=== PATIENT | female | born 2005 | race Caucasian/White ===

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

== ENCOUNTER 2023-01-07 07:27 | Outpatient (RCR) | payer BC, MEDICAID, SELFPAY | END 2023-01-29 23:59 | disposition home or self-care (01) | LOC: SPT 07:27 | PROVIDERS: PCP Nurse Practitioner Family; Visit Provider Nurse Practitioner Family | DX: M25.561 Pain in right knee (principal) | CPT/HCPCS: 97110; 97161 ==

== ENCOUNTER 2023-01-30 06:00 | Outpatient (RCR) | payer BC, MEDICAID, SELFPAY | END 2023-02-02 23:59 | disposition home or self-care (01) | LOC: SPT 06:00 | PROVIDERS: PCP Nurse Practitioner Family; Visit Provider Nurse Practitioner Family | DX: M25.561 Pain in right knee (principal) | CPT/HCPCS: 97110 ==

== ENCOUNTER 2023-02-21 06:16 | Emergency (ER) | payer OTHER, BC, MEDICAID, SELFPAY ==
[2023-02-21 06:26] VITALS: BP 137/80; PULSE 93; RESP 20; TEMP 36.7; O2SAT 94
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
[2023-02-21] MEDS: iohexol 350 mg/mL 500 mL Btl (per mL) IV (07:26)
[2023-02-21 07:27] VITALS: BP 146/78; PULSE 80; RESP 18; O2SAT 99
[2023-02-21 07:31] VITALS: BP 137/80; PULSE 93; RESP 18; O2SAT 100
== END 2023-02-21 08:24 | disposition home or self-care (01) ==
PROVIDERS: Emergency Provider Emergency Medicine; PCP Nurse Practitioner Family
DX: Z04.1 Encounter for examination and observation following transport accident (principal); V89.2XXA Person injured in unspecified motor-vehicle accident, traffic, initial encounter
CPT/HCPCS: 70450; 71260; 72125; 74177; 99285; Q9967

== ENCOUNTER → 2023-04-29 10:06 | Outpatient (BNVA) | payer BC, MEDICAID, SELFPAY | PROVIDERS: PCP Nurse Practitioner Family; Referring Provider Nurse Practitioner Family; Visit Provider Nurse Practitioner | DX: S83.206A Unspecified tear of unspecified meniscus, current injury, right knee, initial encounter; M23.51 Chronic instability of knee, right knee; X58.XXXA Exposure to other specified factors, initial encounter | CPT/HCPCS: 73560; 73565 ==

== ENCOUNTER 2023-06-08 07:49 | Outpatient (CLI) | payer BC, MEDICAID, SELFPAY ==
--- NOTE | 2023-06-08 08:00 | MR_ITS ---
WS: [id number] MRI RIGHT KNEE NONCONTRAST TECHNIQUE: Axial PD, coronal PD fat sat, coronal PD, sagittal PD, and sagittal PD fat-sat images obta ined. CLINICAL INFORMATION: acute worsening of right knee pain COMPARISON: None. FINDINGS: Distal quadriceps and patella tendons are intact. Normal ACL and PCL. Complex bucket-handle type tear involving the posterior horn medial meniscus extending to the meniscal root. Associated blunting of the anterior horn. Small meniscal fragment extends along the intercondylar notch. Normal lateral meniscus. Normal patella within the trochlear groove. No subluxation or dislocation. N o significant chondromalacia patella. Normal patella bone marrow signal. Medial and lateral patellar retinaculum appear intact. Normal popliteal fossa. Small amount of fluid deep to the lateral collateral ligament which appears i ntact. Popliteus appears intact. Normal biceps femoris. Normal medial collateral ligament. Normal pop liteal fossa. IMPRESSION: 1. Normal ACL and PCL. 2. Complex bucket-handle type tear involving the posterior horn medial meniscus extending to the men iscal root. 3. Associated blunting of the anterior horn. Small fragment extends along the intercondylar notch. 4. Small amount of fluid and edema along the lateral collateral ligament consistent with grade 1 inj ury. LCL appears intact. 5. Normal patella within the trochlear groove. No evidence of subluxation or dislocation. Normal pat ellar retinaculum. 6. Normal medial collateral ligament. Outbridge grading: grade I: focal areas of hyperintensity with normal contour
== END 2023-06-08 07:50 | disposition home or self-care (01) ==
LOC: RAD 07:49
PROVIDERS: PCP Nurse Practitioner Family; Visit Provider Nurse Practitioner
DX: S83.211A Bucket-handle tear of medial meniscus, current injury, right knee, initial encounter (principal); T84.022A Instability of internal right knee prosthesis, initial encounter; X58.XXXA Exposure to other specified factors, initial encounter
CPT/HCPCS: 73721

== ENCOUNTER 2023-09-23 05:49 | Day surgery (SDC) | payer BC, MEDICAID, SELFPAY ==
[2023-09-23] VITALS (11 sets, daily range): BP systolic 95–137; BP diastolic 41–87; PULSE 70–93; RESP 10–20; TEMP 36.4–36.9; O2SAT 97–100
[2023-09-23] MEDS: sodium chloride 0.9% 1,000 ML 30 ML IV (06:14)
[2023-09-23] MEDS: acetaminophen 1,000 MG/100 ML PIGGYBACK 400 MG IV (06:16)
[2023-09-23] MEDS: ketorolac 30 mg/mL INJ IVP (06:17)
[2023-09-23] MEDS: scopolamine 1.5 Patch 1 PATCH TRANSDERMA (06:17)
[2023-09-23 06:30] LABS: OR HCG Qualitative Urine Negative (Negative)
--- NOTE | 2023-09-23 06:42 | ANES.PREANE2 ---
Pre-Anesthetic Assessment Height/Weight: Height 1.75 m Weight 66.678 kg Temp Pulse Resp BP Pulse Ox O2 Del Method 97.9 F 86 16 123/65 100 Room Air 09/23/23 06:06 09/23/23 06:06 09/23/23 06:06 09/23/23 06:06 09/23/23 06:06 09/23/23 06:06 Operation Date: 09/23/23 07:00 Proposed Procedures p Knee Arthroscopy - RIGHT Knee Diagnostic And Surgical Arthroscopy with Medial Meniscal Repair versus Partial Medial Meniscectomy(Right) - Andres Baker DO Familial anesthetic complications: None Was Beta Gaurang taken within 24 hours: N/A Was Clonidine taken within 24 hours: N/A Last intake: Intake Last Liquid Date 09/22/23 Last Liquid Time 22:00 Last Solid Date 09/22/23 Last Solid Time 22:00 Social Tobacco (vapes) and No alcohol Exam alert, oriented x 3, clear to auscultation bilaterally and regular rate & rhythm Airway Mallampati: Class II Dentition: full Anesthetic Plan ASA status: 1 Anesthesia: General Risk of > 500 ml blood loss (7ml/kg in children): No Medications/Allergies Home Medications Medication Instructions Recorded Confirmed Last Taken Type amitriptyline 25 mg tablet 20 mg PO DAILY 09/22/23 09/23/23 09/22/23 History Allergies Allergy/AdvReac Type Severity Reaction Status Date / Time cantaloupe Allergy ALGY-Anaphy Verified 08/18/23 07:52 laxis Current Medications Generic Name Dose Route Start Last Admin Trade Name Freq PRN Reason Stop Dose Admin Sodium Chloride 1,000 mls @ 30 mls/hr 09/23/23 06:00 09/23/23 06:14 Sodium Chloride 0.9% IV 09/24/23 05:59 30 mls/hr .Q24H AIDA Administration PFSH Anesthesia Medical History Recurrent instability of right knee joint Positive Vic test of right knee No pertinent past medical history Social History Alcohol intake: never Data Anesthesia Cardiac Studies: No Data to Display
[2023-09-23] MEDS: ceFAZolin 2,000 MG in sodium chloride 0.9% (plus) 50 ML 100 MG IV (06:56)
--- NOTE | 2023-09-23 07:00 | P.HP_ITS ---
Same Day Surgery H&P Indication for Procedure/HPI DATE OF PROCEDURE: September 23, 2023 CHIEF COMPLAINT/INDICATIONFOR SURGICAL PROCEDURE: Right knee medial meniscus tear PREOP DIAGNOSIS: Right knee medial meniscus tear PLANNED PROCEDURE: Operation Date: 09/23/23 07:00 Proposed Procedures p Knee Arthroscopy - RIGHT Knee Diagnostic And Surgical Arthroscopy with Medial Meniscal Repair versus Partial Medial Meniscectomy(Right) - Andres Baker DO Medications/Allergies* Home Medications Medication Instructions Recorded Confirmed Type amitriptyline 25 mg tablet 20 mg PO DAILY 09/22/23 09/23/23 History Allergies/Adverse Reactions Allergy/AdvReac Type Severity Reaction Status Date / Time cantaloupe Allergy ALGY-Anaphy Verified 08/18/23 07:52 laxis Current Medications: Generic Name Dose Route Start Last Admin Trade Name Freq PRN Reason Stop Dose Admin Sodium Chloride 1,000 mls @ 30 mls/hr 09/23/23 06:00 09/23/23 06:14 Sodium Chloride 0.9% IV 09/24/23 05:59 30 mls/hr .Q24H AIDA Administration Pertinent History/Comorbid Conditions* Medical History (Updated 08/31/23 @ 07:14 by Andres Baker DO) Recurrent instability of right knee joint Positive Vic test of right knee No pertinent past medical history Social History Alcohol intake: never Pertinent Exam Findings alert, oriented x 3, operative site marked and procedure specific exam findings Please refer to detailed orthopedic examination on 08/17/2023: Listed below RIGHT LOWER EXTREMITY: Yes knee joint Right knee: Yes inspection (No skin breakdown or bruising. Mild swelling noted anteriorly), Yes palpation (Pain to anterior knee, medial joint line and posteromedial knee), Yes ROM (AROM: Flex 120, Ext: full -- pain with AROM. ), Yes neurovascular exam (Sensation intact to light touch. ) and Yes special tests Right knee special tests: Patellar apprehension test: Negative, Patellofemoral grind test: Negative, Vic test: Positive (medially), Anterior drawer sign: Negative and Anterior Nir test: Negative OTHER: Stable varus valgus stress, no significant clinical malalignment appreciated Recommendations Surgery/Procedure today Other Plans: Plan to proceed to the OR today for right knee diagnostic and surgical arthroscopy with medial meniscus repair versus partial medial meniscectomy. Talked about treatment options in detail she understands and Zetts procedure risk benefits complication alternatives of surgery and through shared decision- making elects to proceed with surgical intervention today all questions answered at this time. Coding Level of Care Code Acute Code for Fortino Ku
[2023-09-23] MEDS: lidocaine-epi 2% PF 1:200,000 20 mL SDV 40 ML XX (07:30)
--- NOTE | 2023-09-23 09:57 | P.BOP_ITS ---
Date of Procedure: [09/23/2023] Surgeon: Andres Baker DO Ic Designer Custom(s): None Procedure(s) performed: Right knee diagnostic and surgical arthroscopy with medial meniscus repair Right knee diagnostic and surgical arthroscopy with loose body removal Right knee diagnostic and surgical arthroscopy with extensive synovectomy (medial lateral patellofemoral compartments) Right knee diagnostic and surgical arthroscopy with bone marrow stimulation Findings of the procedure(s): Right knee bucket-handle medial meniscus tear, with a loose body noted had extensive synovitis underwent all inside medial meniscus repair procedure went as planned without issues or complications I did perform bone marrow stimulation to offset press operator helper in meniscal repair healing. Patient taken PACU in stable condition recovering well. Estimated blood loss: 5 mL Specimen(s) removed: Loose body removed, not sent for pathology or specimen Post-operative diagnosis: Right knee bucket-handle medial meniscus tear, extensive synovitis, loose body
--- NOTE | 2023-09-23 09:59 | PM.OP ---
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 Procedure done: Right knee diagnostic and surgical arthroscopy with medial meniscus repair Right knee diagnostic and surgical arthroscopy with loose body removal Right knee diagnostic and surgical arthroscopy with extensive synovectomy (medial lateral patellofemoral compartments) Right knee diagnostic and surgical arthroscopy with bone marrow stimulation Surgeon: Andres Baker DO Estimated blood loss: 5mL Tourniquet: 83 minutes IV fluids: See anesthesia record Complications: None Findings: See operative report narrative Condition: stable Disposition: same day Brief History: Patient is a 18-year-old female with right?knee?pain.? Patient has failed conservative treatment who has been worked up for right??knee?pain in the outpatient setting. MRI findings consistent with bucket-handle tear of the medial meniscus. talked in the office about treatment options patient would like to proceed with a right?knee?diagnostic and surgical arthroscopy with partial medial meniscectomy versus repair..? Patient understand the ins and outs of the procedure the risk benefits complication alternatives to treatment options.? Understanding risk of surgery patient agree to proceed with surgical intervention.? Understanding this and patient agree to proceed with surgical intervention all questions answered. Procedure: Patient seen and evaluated in the preoperative holding area.? Consent was reviewed and signed with patient.? Correct extremity was then marked.? Patient seen evaluated Anesthesia Department once cleared for surgery patient was taken back to the operative suite.? Patient was transported onto the OR table in supine position.? All bony prominences well-padded patient was appropriate secured to the bed.? Once appropriately anesthetized a nonsterile tourniquet was applied to the right thigh.? The right lower extremity was then prepped and draped in standard orthopedic fashion.? Final timeout performed.? Patient received appropriate preoperative antibiotics. Patient received local anesthetic of lidocaine with epinephrine into the joint as well as around the portal sites.? Esmarch tourniquet was used exsanguinate the right lower extremity and tourniquet was insufflated to 250 mmHg. A standard 2 portal vertical incision diagnostic and surgical arthroscopy of the right?knee?was performed in standard fashion.? Small stab incision made in the inferolateral portal introduced trocar and arthroscope into the suprapatellar pouch.? Suprapatellar pouch was subsequently visualized and found to have significant synovitis but no loose bodies.? Patient had noticeable significant inflamed infrapatellar fat pad and thickening hypertrophic within the patellofemoral compartment.? ?The medial gutter was free of loose bodies I then introduced the arthroscope into the medial compartment.? Within the medial compartment I then established my inferior medial working portal utilizing spinal needle outside in technique.? Once established I immediately identified a bucket-handle meniscus tear flipped within the intercondylar notch as well as a loose body within this notch. I first utilized a grasper and removed the loose body within the intercondylar notch and then proceeded with evaluation of the medial meniscus tear. Patient's articular cartilage medially was found to be pristine with no evidence of chondromalacia. I then performed valgus stress and was able to utilize a probe to reduce this tear. It was noted that the tear was torn posteriorly in the white-red transition zone and anteriorly as it wraps around into the red red zone. As result given her young age and the location of this tear deemed this had significant value in attempting a meniscus repair. As result at this point in time I then prepped for the meniscus repair. Plan was for an all inside technique. I placed a spinal needle medially at the level of the joint line and performed a controlled MCL sprain to open up to prevent from any damaging of the medial compartment cartilage while performing this repair. I then utilized arthroscopic shaver to debride the meniscal edges in preparation for my repair in order to stimulate bleeding. At this point in time I then switched my camera to the medial portal and placed a half pipe into my lateral portal to have appropriate trajectory with all sutures passing medial and away from the posterior aspect of the knee. I started with a Arthrex fiber stitch all inside meniscus repair with a for starting at the apex of the tear I held this reduction with the probe and then subsequently placed by Arthrex fiber stitch as a standard vertical mattress stitch to hold the meniscus down's to allow for further repair. Once I was satisfied with this I worked from this point at the mid substance of the tear working this posteriorly performing a combination of vertical mattress stitches as well as a medellin stitches to have appropriate compression of the meniscal tear posteriorly. The root was found to be intact as result no root repair was needed. Subsequently placed a total of 3 fiber stitches throughout the posterior horn of the medial meniscus and was satisfied with this repair. Next I worked from the apex anteriorly and placed an additional 4 fiber stitches anteriorly all the way up to the anterior extent of the tear utilizing Arthrex fiber stitch all inside. These had excellent meniscal compression as well as reduction of the meniscus I utilized a combination of mattress stitches as well as a haybail stitches. After this was performed I had satisfactory reduction of the meniscal repair bucket-handle or was reduced and in satisfactory position I utilized a probe to probe the meniscus and was intact and reduced and stable. I did perform a synovectomy of the medial compartment prior to this repair to allow for easier passive suture. Next a introduced the arthroscope to the intercondylar notch.? PCL and ACL were intact. patient had significant thickening of the infrapatellar fat pad with noticeable synovitis. I utilized arthroscopic shaver and I then performed an extensive synovectomy with the arthroscopic shaver of the patellofemoral medial and lateral compartments as well as the intercondylar notch. Advance the?scope?into the retrocruciate space and no further loose bodies were found. Next I introduced the arthroscope into the lateral compartment the lateral compartment was found to have grade 0 chondromalacia.? Lateral meniscus was found to be intact.? The root was intact.? ? Next of the arthroscope was placed into the lateral gutter and this was free of loose bodies.? Finally I reintroduced the arthroscope into the patellofemoral compartment.? 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 At this point I utilized arthroscopic shaver as well as thermal wand to perform extensive synovectomy of the patellofemoral compartment. This completed my work of the patellofemoral space.? I then switch my portal sites to the medial working portal.? Completed the rest of my synovectomy and the rest of my examination arthroscopy was normal. All fluid was suctioned from the joint.? ?All instruments were withdrawn.? Portal sites were closed with interrupted nylon suture.? portal sites were then covered with with Xeroform 4 x 4's ABD Curlex and Noble wrap.? Patient was then subsequently awakened from anesthesia and taken to PACU in stable condition. Disposition: Patient taken to PACU in stable condition recovering well.? Will receive appropriate discharge structure as well as pain medication postoperatively as well as? DVT prophylaxis.we will have patient follow-up with us in the office in 2 weeks.? Patient will be nonweightbearing to the right lower extremity placed in a [place] brace locked in extension at this time we will follow meniscal repair protocol. ? Patient understands and agrees with current plan.? All questions answered.
[2023-09-23] MEDS: HYDROcodone-acetaminophen 5-325 mg Tablet 1 TAB PO (10:18)
--- NOTE | 2023-09-23 10:35 | ANE.PACU2 ---
Inpatient post-anesthesia follow up: Airway intact: Yes Vital signs: Temperature 98.4 F Pulse Rate 93 Respiratory Rate 16 Blood Pressure 137/87 Pulse Oximetry 97 Oxygen Delivery Me thod Room Air Oxygen Flow Rate 8 Fraction of Inspir ed Oxygen Hydration adequate: Yes Nausea and vomiting: No Pain level: 1 Mental status: Baseline
== END 2023-09-23 10:35 | disposition home or self-care (01) ==
PROVIDERS: Anesthesiology; PCP Nurse Practitioner Family; Visit Provider Student in an Organized Health Care Education/Training Program
PROC: (CPT 29870; principal; 2023-09-23 07:00)
DX: S83.211A Bucket-handle tear of medial meniscus, current injury, right knee, initial encounter (principal); X58.XXXA Exposure to other specified factors, initial encounter; M65.9 Synovitis and tenosynovitis, unspecified; M94.261 Chondromalacia, right knee; F17.290 Nicotine dependence, other tobacco product, uncomplicated
CPT/HCPCS: 29876; 29881; 81025; C1713; J0131; J0690; J1100; J1200; J1885; J2250; J2405; J2704; J3010; J7030

== ENCOUNTER 2023-10-14 11:59 | Outpatient (RCR) | payer BC, MEDICAID, SELFPAY | END 2023-10-31 23:59 | disposition home or self-care (01) | LOC: SPT 11:59 | PROVIDERS: PCP Family Medicine; Visit Provider Physician Assistant | DX: Z98.890 Other specified postprocedural states (principal) | CPT/HCPCS: 97110; 97161 ==

== ENCOUNTER 2023-11-01 06:30 | Outpatient (RCR) | payer BC, MEDICAID, SELFPAY | END 2023-11-30 23:59 | disposition home or self-care (01) | LOC: SPT 06:30 | PROVIDERS: PCP Family Medicine; Visit Provider Physician Assistant | DX: Z98.890 Other specified postprocedural states (principal) | CPT/HCPCS: 97110 ==

== ENCOUNTER 2023-12-01 06:00 | Outpatient (RCR) | payer BC, MEDICAID, SELFPAY | END 2023-12-31 23:59 | disposition home or self-care (01) | LOC: SPT 06:00 | PROVIDERS: PCP Family Medicine; Visit Provider Physician Assistant | DX: Z98.890 Other specified postprocedural states (principal) | CPT/HCPCS: 97110; 97112 ==

== ENCOUNTER 2024-01-01 06:00 | Outpatient (RCR) | payer BC, MEDICAID, SELFPAY | END 2024-01-30 23:59 | disposition home or self-care (01) | LOC: SPT 06:00 | PROVIDERS: PCP Family Medicine; Visit Provider Physician Assistant | DX: Z98.890 Other specified postprocedural states (principal) | CPT/HCPCS: 97110 ==

== ENCOUNTER → 2024-11-15 13:47 | Outpatient (BNVA) | payer BC, MEDICAID, SELFPAY | PROVIDERS: PCP Family Medicine; Visit Provider Student in an Organized Health Care Education/Training Program | DX: M23.307 Other meniscus derangements, unspecified meniscus, left knee (principal); M25.562 Pain in left knee; M25.569 Pain in unspecified knee | CPT/HCPCS: 73560; 73565 ==

== ENCOUNTER 2024-12-06 09:38 | Outpatient (CLI) | payer BC, MEDICAID, SELFPAY ==
--- NOTE | 2024-12-06 09:30 | MR_ITS ---
WS: [id number] MRI LEFT KNEE HISTORY: left knee injury/rule out meniscus tear COMPARISON: Radiograph 11/15/2024 Anterior cruciate ligament: Intact. Posterior cruciate ligament: Intact. Medial collateral ligament: Intact. Posterior lateral corner structures: Intact. Medial menisci: Abnormal signal in the posterior horn medial meniscus. There is a horizontal tear extending to the intra-articular surface. Anterior horn is normal. Lateral meniscus: Intact. Normal signal, size and shape. Extensor mechanism: Distal quadriceps tendon and patellar tendons are intact. Fluid and soft tissue: No joint effusion. No Carney's cyst. Osseous and articular structures: Patellofemoral compartment: Normal. Medial compartment: Normal. Lateral compartment: Very minimal intermediate signal along the central lateral tibial plateau cartilage. No underlying marrow edema. Very minimal chondromalacia. MR/MR knee LT wo con* [id number] IMPRESSION: 1. Horizontal tear posterior medial meniscus contacts the inferior articular s urface. 2. No fractures or marrow edema. 3. Mild superficial surface irregularity involving the lateral tibial plateau cartilage. No underlying marrow edema. 4. Normal ACL.
== END 2024-12-06 09:39 | disposition home or self-care (01) ==
LOC: RAD 09:39
PROVIDERS: PCP Family Medicine; Visit Provider Student in an Organized Health Care Education/Training Program
DX: S83.242A Other tear of medial meniscus, current injury, left knee, initial encounter (principal); X58.XXXA Exposure to other specified factors, initial encounter
CPT/HCPCS: 73721

== ENCOUNTER 2025-02-20 09:42 | Day surgery (SDC) | payer BC, MEDICAID, SELFPAY ==
[2025-02-20] VITALS (10 sets, daily range): BP systolic 111–125; BP diastolic 56–75; PULSE 78–98; RESP 16–17; TEMP 36.8–37.1; O2SAT 100; BMI 21.7
[2025-02-20] MEDS: acetaminophen 1,000 MG/100 ML PIGGYBACK 400 MG IV (10:26)
[2025-02-20 11:35] LABS: OR HCG Qualitative Urine Negative (Negative)
--- NOTE | 2025-02-20 12:32 | ANES.PREANE2 ---
Pre-Anesthetic Assessment Height/Weight: Height 5 ft 9 in Weight 147 lb Temp Pulse Resp BP Pulse Ox O2 Del Method 98.2 F 84 16 118/64 100 Room Air 02/20/25 10:57 02/20/25 10:57 02/20/25 10:57 02/20/25 10:57 02/20/25 10:57 02/20/25 10:57 Preop Diagnosis: Meniscus tear Operation Date: 02/20/25 12:10 Proposed Procedures p LEFT Knee Diagnostic and Surgical Arthroscopy(Left) - Andres Baker DO s LEFT Partial Medial Meniscectomy vs Repair(Left) - Andres Baker DO Was Beta Gaurang taken within 24 hours: N/A Was Clonidine taken within 24 hours: N/A Social No alcohol and No tobacco Quit smoking 1 month ago Exam alert, oriented x 3, clear to auscultation bilaterally and regular rate & rhythm Airway Submandibular: within normal limits Cervical ROM: within normal limits Mallampati: Class II Dentition: full Anesthetic Plan ASA status: 1 Anesthesia: General Other: No prior issues with anesthesia NPO since yesterday evening Patient quit smoking 1 month ago Denies any cardiac issues METs greater than 4 hCG negative Plan for general anesthesia Medications/Allergies Home Medications ?Medication ?Instructions ?Recorded ?Confirmed ?Last Taken ?Type amitriptyline 25 mg tablet 25 mg PO DAILY 09/22/23 02/16/25 02/15/25 History escitalopram oxalate 5 mg tablet 5 mg PO DAILY 02/16/25 02/16/25 02/15/25 History Allergies Allergy/AdvReac Type Severity Reaction Status Date / Time cantaloupe Allergy ALGY-Anaphy Verified 01/04/25 06:28 laxis Current Medications Generic Name Dose Route Start Last Admin Trade Name Freq PRN Reason Stop Dose Admin Sodium Chloride 1,000 mls @ 30 mls/hr 02/20/25 10:15 02/20/25 10:28 Sodium Chloride 0.9% IV 02/21/25 10:14 30 mls/hr .Q24H AIDA Administration PFSH Anesthesia Medical History Recurrent instability of right knee joint Positive Vic test of right knee No pertinent past medical history Social History Smoking and tobacco/nicotine status: never used tobacco/nicotine Alcohol intake: never
--- NOTE | 2025-02-20 12:39 | W.PM.OPSFHP ---
Same Day Surgery H&P Indication for Procedure/HPI DATE OF PROCEDURE: February 20, 2025 CHIEF COMPLAINT/INDICATIONFOR SURGICAL PROCEDURE: Left knee medial meniscus tear PREOP DIAGNOSIS: Left knee medial meniscus tear PLANNED PROCEDURE: Operation Date: 02/20/25 12:10 Proposed Procedures p LEFT Knee Diagnostic and Surgical Arthroscopy(Left) - Andres Baekr DO s LEFT Partial Medial Meniscectomy vs Repair(Left) - Andres Baker DO Medications/Allergies* Home Medications ?Medication ?Instructions ?Recorded ?Confirmed ?Type amitriptyline 25 mg tablet 25 mg PO DAILY 09/22/23 02/16/25 History escitalopram oxalate 5 mg tablet 5 mg PO DAILY 02/16/25 02/16/25 History Allergies/Adverse Reactions Allergy/AdvReac Type Severity Reaction Status Date / Time cantaloupe Allergy ALGY-Anaphy Verified 01/04/25 06:28 laxis Current Medications: Generic Name Dose Route Start Last Admin Trade Name Freq PRN Reason Stop Dose Admin Sodium Chloride 1,000 mls @ 30 mls/hr 02/20/25 10:15 02/20/25 10:28 Sodium Chloride 0.9% IV 02/21/25 10:14 30 mls/hr .Q24H AIDA Administration Pertinent History/Comorbid Conditions* Medical History (Updated 11/19/24 @ 22:17 by Andres Baker DO) Recurrent instability of right knee joint Positive Vic test of right knee No pertinent past medical history Social History Smoking and tobacco/nicotine status: never used tobacco/nicotine Alcohol intake: never Pertinent Exam Findings alert, oriented x 3, operative site marked and procedure specific exam findings Please refer to anesthesia preoperative valuation for heart and lung findings Please refer to detailed orthopedic examination on 01/04/2025 listed below: Right knee?surgical incision site is completely healed and scar present. no signs of infection noted. No wound dehiscence seen. No erythema, warmth or purulent drainage seen. Active range of motion from about 0 to over 130 degrees. Patient can perform straight leg raise can dorsiflex and plantarflex foot. Left knee examination demonstrates mild palpable swelling medial and lateral joint line tenderness to palpation with positive Vic's on examination with endpoint with Nir's, no evidence of patellar instability Recommendations Risks and benefits of procedure reviewed and Patient/family agree to proceed Surgery/Procedure today Other Plans: Plan to proceed to the OR today for left knee diagnostic and surgical arthroscopy with partial medial meniscectomy versus repair. Patient understands in's and outs procedure the risk benefits complication alternative surgical nonsurgical treatment options. Understanding risk of surgery patient elects proceed with surgical intervention. All questions answered at this time. Coding Level of Care Code Acute Code for Chg Fwd
[2025-02-20] MEDS: ceFAZolin 2,000 MG in sodium chloride 0.9% (plus) 50 ML 100 MG IV (14:47)
[2025-02-20] MEDS: lidocaine-epi 1% 20 mL INJ 40 ML INJECTION (15:24)
--- NOTE | 2025-02-20 15:51 | W.PM.BPON ---
Date of Procedure: 02/20/2025 Surgeon: Andres Baker DO Line And Frame Poler(s): MARC Haile Procedure(s) performed: Left knee diagnostic and surgical arthroscopy with partial medial meniscectomy Left knee diagnostic and surgical arthroscopy with extensive synovectomy Findings of the procedure(s): Patient underwent procedure as planned without issues or complication taken recovery in stable condition Estimated blood loss: 5 mL Specimen(s) removed: None Post-operative diagnosis: Left knee medial meniscus tear, extensive synovitis
--- NOTE | 2025-02-20 15:51 | PM.OP ---
Operative Report Date of procedure: February 20, 2025 Surgeon: Andres Baker DO [employer]: MARC Haile Procedure: Preoperative diagnosis Left knee medial meniscus tear Post-op diagnosis: Left knee medial meniscus tear, extensive synovitis Procedure done: Left knee diagnostic and surgical arthroscopy with partial medial meniscectomy Left knee diagnostic and surgical arthroscopy with extensive synovectomy Surgeon: Andres Baker DO Estimated blood loss: 5mL Tourniquet: No tourniquet was used IV fluids: 900mL Complications: None Findings: See operative report narrative Condition: stable Disposition: same day Brief History: Patient is a 20-year-old female with Left?knee?pain.? Patient has failed conservative treatment who has been worked up for Left??knee?pain in the outpatient setting. MRI findings consistent with tear of the medial meniscus. talked in the office about treatment options patient would like to proceed with a Left?knee?diagnostic and surgical arthroscopy with partial medial meniscectomy vs repair.? Patient understand the ins and outs of the procedure the risk benefits complication alternatives to treatment options.? Understanding risk of surgery they agree to proceed with surgical intervention.? Understanding this and patient agree to proceed with surgical intervention all questions answered. Procedure: Patient seen and evaluated in the preoperative holding area.? Consent was reviewed and signed with patient.? Correct extremity was then marked.? Patient seen evaluated Anesthesia Department once cleared for surgery patient was taken back to the operative suite.? Patient was transported onto the OR table in supine position.? All bony prominences well-padded patient was appropriate secured to the bed.? Once appropriately anesthetized a nonsterile tourniquet was applied to the Left thigh.? The Left lower extremity was then prepped and draped in standard orthopedic fashion.? Final timeout performed.? Patient received appropriate preoperative antibiotics. Patient received local anesthetic of lidocaine with epinephrine into the joint as well as around the portal sites.? No tourniquet was inflated A standard 2 portal vertical incision diagnostic and surgical arthroscopy of the Left?knee?was performed in standard fashion.? Small stab incision made in the inferolateral portal introduced trocar and arthroscope into the suprapatellar pouch.? Suprapatellar pouch was subsequently visualized and found to have significant synovitis but no loose bodies.? Patient had noticeable significant inflamed infrapatellar fat pad and thickening hypertrophic within the patellofemoral compartment.? ?The medial gutter was free of loose bodies I then introduced the arthroscope into the medial compartment.? Within the medial compartment I then established my inferior medial working portal utilizing spinal needle outside in technique.? Once established I then visualized our articular cartilage of the medial compartment with a valgus stress.? 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 Next I inspected the meniscus.? With an arthroscopic probe was utilized to visual? all aspects of the meniscus.? Meniscal root was found to be intact.? Meniscus was found to be torn at the body to posterior horn junction. Tear was complex and in the white white and white-red zone as a result this did not appear to be due to mend ability for repair and as result decision was for a partial medial meniscectomy. I then subsequently introduced a basket forceps as well as arthroscopic shaver to perform a partial medial meniscectomy to stable meniscal tissue and then utilized a thermal wand to anneal the edges.? Next, I then performed a synovectomy of the medial compartment.? This completed medial compartment work. Next a introduced the arthroscope to the intercondylar notch.? PCL and ACL were intact. patient had significant thickening of the infrapatellar fat pad spanning into the medial and lateral compartments.? I then performed an extensive synovectomy with the arthroscopic shaver of the patellofemoral medial and lateral compartments as well as the intercondylar notch. Advance the?scope?into the retrocruciate space and no loose bodies were found. Next I introduced the arthroscope into the lateral compartment the lateral compartment was found to have grade 0-1 chondromalacia.? Lateral meniscus was found to be intact.? The root was intact.? Given the grade 0-1 chondromalacia there is no unstable cartilage pieces to perform chondroplasty.? This completed my work of the lateral compartment and then performed a synovectomy of the lateral compartment.? Next of the arthroscope was placed into the lateral gutter and this was free of loose bodies.? Finally I reintroduced the arthroscope into the patellofemoral compartment.? The patellofemoral was found to have grade 0-1 chondromalacia of the patellofemoral compartment.? At this point I utilized arthroscopic shaver as well as thermal wand to perform extensive synovectomy of the patellofemoral compartment. This completed my work of the patellofemoral space.? I then switch my portal sites to the medial working portal.? Completed the rest of my synovectomy and the rest of my examination arthroscopy was normal. All fluid was suctioned from the joint.? ?All instruments were withdrawn.? Portal sites were closed with interrupted nylon suture.? portal sites were then covered with with Xeroform 4 x 4's ABD Curlex and Noble wrap.? Patient was then subsequently awakened from anesthesia and taken to PACU in stable condition. Disposition: Patient taken to PACU in stable condition recovering well.? Will receive appropriate discharge structure as well as pain medication postoperatively as well as? DVT prophylaxis.we will have patient follow-up with us in the office in 2 weeks.? We will weightbearing as tolerated to the Left lower extremity.? Patient understands and agrees with current plan.? All questions answered.
--- NOTE | 2025-02-20 17:02 | ANE.PACU2 ---
Inpatient post-anesthesia follow up: Airway intact: Yes Vital signs: Temperature 98.7 F Pulse Rate 78 Respiratory Rate 17 Blood Pressure 125/75 Pulse Oximetry 100 Oxygen Delivery Me thod Room Air Oxygen Flow Rate 6 Fraction of Inspir ed Oxygen Hydration adequate: Yes Nausea and vomiting: No Pain level: 1 Mental status: Baseline
== END 2025-02-20 17:02 | disposition home or self-care (01) ==
PROVIDERS: PCP Family Medicine; Visit Provider Student in an Organized Health Care Education/Training Program
PROC: (CPT 29870; principal; 2025-02-20 12:10)
PROC: (CPT 29876; 2025-02-20 12:10)
DX: S83.242A Other tear of medial meniscus, current injury, left knee, initial encounter (principal); S83.92XA Sprain of unspecified site of left knee, initial encounter; X58.XXXA Exposure to other specified factors, initial encounter; Z87.891 Personal history of nicotine dependence
CPT/HCPCS: 29876; 29881; 81025; J0131; J0690; J1100; J1885; J2250; J2405; J2704; J3010; J3490; J7030; J9999